=== PATIENT | female | born 1935 | race Caucasian/White ===

== ENCOUNTER 2019-07-30 13:14 | Emergency (ER) | payer MEDICARE, OTHER ==
[~2019-07-30] VITALS: Ht 160 cm; Wt 72.7 kg
[2019-07-30 13:22] VITALS: Ht 160 cm; Wt 72.7 kg
[2019-07-30 13:42] LABS: BASOPHILS 0.5 % (0-2); EOSINOPHILS 2.3 % (0-7); HEMATOCRIT 42.5 % (36.0-48.0); HEMOGLOBIN 13.6 g/dL (12-16); IMMATURE GRANULOCYTES 0.4 % (0-5); LYMPHOCYTES 25.5 % (15-50); MCH 28.5 pg (26.0-34.0); MCV 89.1 fL (80.0-100.0); MEAN PLATELET VOLUME 9.6 fL (7.4-10.4); NEUTROPHILS 63.3 % (40-80); PLATELET COUNT 193 10x3/uL (130-400); RBC 4.77 10x6/uL (4.00-5.40); RDW 13.9 % (11.5-14.5); WBC 7.4 10x3/uL (4.8-10.8)
[2019-07-30 13:51] LABS: CALC OSMOLALITY 287 mosm/kg (275-300); CALCIUM 9.3 mg/dL (8.5-10.1); CARBON DIOXIDE 27.9 mmol/L (21.0-32.0); CHLORIDE - SERUM 109 mmol/L (98-107); GLUCOSE 130 mg/dL (74-106); POTASSIUM - SERUM 4.1 mmol/L (3.5-5.1); SODIUM 143 mmol/L (136-145); UREA NITROGEN 14 mg/dL (7-18); eGFR NON AFRICAN AMERICAN 56 mL/min (90-120)
[2019-07-30 14:09] LABS: ALBUMIN 3.1 g/dL (3.4-5.0); ALKALINE PHOSPHATASE 70 U/L (30-120); ALT (SGPT) 13 U/L (10-68); BILIRUBIN - TOTAL 0.49 mg/dL (0.2-1.3); CKMB 0.6 U/L (0.0-3.6); CREATINE KINASE 48 UL (21-215); MAGNESIUM - SERUM 2.3 mg/dL (1.8-2.4); PROTEIN - SERUM 6.8 g/dL (6.4-8.2)
[2019-07-30 14:10] LABS: TROPONIN-I < 0.017 ng/mL (0.000-0.060)
[2019-07-30 14:38] LABS: INR 1.06 (0.85-1.17); PROTIME 13.1 SECONDS (11.6-15.0)
[2019-07-30 14:41] LABS: APTT 26.4 SECONDS (22.8-39.4)
[2019-07-30 15:00] VITALS: BP 190/90
== END 2019-08-03 07:29 | disposition other institution (70) ==
LOC: D.ER 13:14
PROVIDERS: Family Medicine
DX: I63.9 Cerebral infarction, unspecified (principal); R13.10 Dysphagia, unspecified; I16.0 Hypertensive urgency; I49.8 Other specified cardiac arrhythmias

== ENCOUNTER 2020-08-19 10:45 | Inpatient (IN) | payer MEDICARE, OTHER ==
[~2020-08-19] VITALS: Ht 160 cm; Wt 68.5 kg
[~2020-08-19 10:45] MED LIST: BAYER CHEWABLE81 MG PO; BETAPACE 80 MG80 MG PO; ELIQUIS5 MG PO; PRINZIDE 20/12.1 TAB PO
--- NOTE | 2020-08-19 10:48 | NUR ---
ARRIVED VIA EMS AFTER FALLING AND C/O PAIN IN RIGHT KNEE.
[2020-08-19 11:20] VITALS: BP 144/84
[2020-08-19 12:07] VITALS: BP 134/80
[2020-08-19 13:07] VITALS: BP 154/74
[2020-08-19 13:38] LABS: CALC OSMOLALITY 277 mosm/kg (275-300); CALCIUM 8.9 mg/dL (8.5-10.1); CHLORIDE - SERUM 103 mmol/L (98-107); CREATININE - SERUM 0.8 mg/dL (0.6-1.3); GLUCOSE 114 mg/dL (74-106); POTASSIUM - SERUM 3.6 mmol/L (3.5-5.1); SODIUM 139 mmol/L (136-145); UREA NITROGEN 10 mg/dL (7-18); eGFR NON AFRICAN AMERICAN 72 mL/min (90-120)
[2020-08-19 13:46] LABS: BASOPHILS 0.5 % (0-2); HEMATOCRIT 32.4 % (36.0-48.0); HEMOGLOBIN 10.1 g/dL (12-16); IMMATURE GRANULOCYTES 0.4 % (0-5); LYMPHOCYTE ABS# 1.15 10x3/uL (1.18-3.74); LYMPHOCYTES 11.3 % (15-50); MCH 28.1 pg (26.0-34.0); MCHC 31.2 g/dL (31.0-37.0); MEAN PLATELET VOLUME 10.6 fL (7.4-10.4); MONOCYTES 12.3 % (2-11); NEUTROPHIL ABS# 7.61 10x3/uL (1.56-6.13); NEUTROPHILS 74.5 % (40-80); PLATELET COUNT 216 10x3/uL (130-400); RDW 16.1 % (11.5-14.5); WBC 10.2 10x3/uL (4.8-10.8)
[2020-08-19 13:51] LABS: ALBUMIN 2.8 g/dL (3.4-5.0); ALKALINE PHOSPHATASE 83 U/L (30-120); ALT (SGPT) 14 U/L (10-68); BILIRUBIN - TOTAL 2.15 mg/dL (0.2-1.3); MAGNESIUM - SERUM 2.2 mg/dL (1.8-2.4); PRO BNP 6359 pg/mL (0-450); PROTEIN - SERUM 6.4 g/dL (6.4-8.2); TROPONIN-I < 0.017 ng/mL (0.000-0.060)
--- NOTE | 2020-08-19 14:00 | NUR ---
ASSUMED CARE OF PT. A/A/OX3. INCONT OF LARGE AMT URINE. CHANGED/PERICARE GIVEN. POSITIONED FOR COMFORT.
[2020-08-19 14:10] VITALS: BP 165/82
[2020-08-19 14:22] LABS: APTT 35.4 SECONDS (22.8-39.4); INR 2.01 (0.85-1.17); PROTIME 21.2 SECONDS (11.6-15.0)
--- NOTE | 2020-08-19 16:15 | NUR ---
NOTIFIED CONCRETE POURING SUPERVISOR OF CONSULT FOR DR SIFUENTES FOR ELEVATED BNP
[2020-08-19 16:19] VITALS: BP 124/98
[2020-08-19 16:46] LABS: SARS-CoV-2 ANTIGEN NEGATIVE- SARS-COV-2 (NEGATIVE)
--- NOTE | 2020-08-19 17:26 | NUR ---
REPORT TO MARÍA, NURSE
[2020-08-19 18:10] VITALS: Ht 160 cm; Wt 68.5 kg
[2020-08-19] MEDS ORDERED: TIROSINT25 MCG PO (18:52)
[2020-08-19] MEDS ORDERED: METOPROLOL TART25 MG PO (18:52)
[2020-08-19 19:51] LABS: CKMB 0.3 U/L (0.0-3.6); CREATINE KINASE 32 UL (21-215); TROPONIN-I < 0.017 ng/mL (0.000-0.060)
[2020-08-19 20:43] VITALS: BP 158/88
--- NOTE | 2020-08-19 22:55 | NUR ---
TELEMETRY CALLED AND REPORTED PT HAVING 4-5 RUN OF VTACH. HOME MEDS BETAPACE AND lopressor resumed per orders, these are given at this time. paged coil shaper to notify of runs of vtach 230 spoke to Therese Murdock APN, advised to notify Dr Villanueva
--- NOTE | 2020-08-19 23:08 | NUR ---
runs of vtach called to Dr Villanueva. He interogated pt pacemaker yesterdat feels this is likely afib not vtach. will see pt tomorrow. will continue to monitor
[2020-08-20 00:19] VITALS: BP 145/82
--- NOTE | 2020-08-20 01:20 | NUR ---
VO FOR BLAIR CATH D/T SEVERE PAIN WITH TURNIG FOR INCONTINENCE CARE. BLAIR CATH ATTEMPTED MULTIPLE TIMES X 3 NURSES UNSUCCESSFUL. PUREWIK CATH REPLACED. WILL CONTINUE TO MONITOR
[2020-08-20 01:27] LABS: BILIRUBIN NEGATIVE (NEGATIVE); KETONE NEGATIVE (NEGATIVE); NITRITE NEGATIVE (NEGATIVE); UROBILINOGEN NORMAL mg/dL (< 2)
[2020-08-20 02:14] LABS: CKMB 0.4 U/L (0.0-3.6); CREATINE KINASE 29 UL (21-215); TROPONIN-I < 0.017 ng/mL (0.000-0.060)
--- NOTE | 2020-08-20 05:38 | NUR ---
camilo cath placed via sterile technique by Lois PADRON . pt bed pad noted to be saturated with urine prior to camilo cath placment. Pt tolerated procedure well no s/sx of pain/discmofort with camilo cath. Pt reports continued pain to right knee with movement or touch
[2020-08-20 07:25] LABS: BASOPHILS 0.6 % (0-2); EOSINOPHILS 2.3 % (0-7); HEMATOCRIT 34.9 % (36.0-48.0); HEMOGLOBIN 10.8 g/dL (12-16); IMMATURE GRANULOCYTES 0.5 % (0-5); LYMPHOCYTES 16.9 % (15-50); MCH 27.8 pg (26.0-34.0); MCHC 30.9 g/dL (31.0-37.0); MCV 89.9 fL (80.0-100.0); MEAN PLATELET VOLUME 9.4 fL (7.4-10.4); MONOCYTES 13.9 % (2-11); NEUTROPHIL ABS# 5.46 10x3/uL (1.56-6.13); NEUTROPHILS 65.8 % (40-80); PLATELET COUNT 231 10x3/uL (130-400); RBC 3.88 10x6/uL (4.00-5.40); RDW 16.1 % (11.5-14.5); WBC 8.3 10x3/uL (4.8-10.8)
[2020-08-20 07:35] VITALS: BP 149/88
[2020-08-20 07:44] LABS: ALBUMIN 2.4 g/dL (3.4-5.0); ANION GAP 6.1 mmol/L (8-16); CALCIUM 8.4 mg/dL (8.5-10.1); CARBON DIOXIDE 33.2 mmol/L (21.0-32.0); CREATININE - SERUM 0.8 mg/dL (0.6-1.3); MAGNESIUM - SERUM 2.1 mg/dL (1.8-2.4); POTASSIUM - SERUM 3.3 mmol/L (3.5-5.1); PROTEIN - SERUM 5.1 g/dL (6.4-8.2)
[2020-08-20 07:51] LABS: CREATINE KINASE 30 UL (21-215); TROPONIN-I < 0.017 ng/mL (0.000-0.060)
[2020-08-20 08:05] LABS: CKMB 0.2 U/L (0.0-3.6)
--- NOTE | 2020-08-20 08:27 | NUR ---
AM MEDS GIVEN AT THIS TIME. ALSO GAVE 40MEQ OF K FOR LOW K OF 3.3. PT A/O X2, RESP EVEN AND NONLABORED ON 2L NC. LT CHEST PACEMAKER DRESSING CDI. PACED- 76 ON TELEMETRY. NO OUTPUT NOTED TO JOHNNIE AT THIS TIME. ALL NEEDS MET, CALL LIGHT IN REACH, WILL CONTINUE PLAN OF CARE.
--- NOTE | 2020-08-20 10:31 | NUR ---
INSTRUCTED PT ON HOW TO USE INCENTIVE SPIROMETER, PT WAS ONLY ABLE TO REACH 500 MINH. PLACED SCDS ON BILAT. PT DENIES ANY NEEDS AT THIS TIME. BED ALARM ON AND CALL LIGHT IN REACH.
[2020-08-20 14:08] VITALS: BP 135/82
[2020-08-20 17:20] VITALS: BP 153/96
--- NOTE | 2020-08-20 17:45 | NUR ---
NOTIFIED BY TRIAGE REGISTER NURSE THAT PT HAD PULLED HER IV OUT. CATHETER TIP INTACT. TRIAGE REGISTER NURSE CLEANED PT UP. NEW 22G IV STARTED TO RT HAND. PT TOLERATED WELL. PT DENIES ANY NEEDS AT THIS TIME. CALL LIGHT IN REACH, BED ALARM ON.
[2020-08-20 22:19] VITALS: BP 146/98
[2020-08-21 00:30] VITALS: BP 110/68
[2020-08-21 04:30] VITALS: BP 108/57
--- NOTE | 2020-08-21 06:43 | NUR ---
PT HAS RESTED THROUGH THE NIGHT. BLAIR WAS PATENT UP UNTIL 0545 WHEN NURSE ENTERED ROOM AND PT WAS HOLDING BLAIR IN HER HAND WITH BULB STILL INFLATED. PT PLEASANTLY CONFUSED. PICKING AT HER CLOTHES, PICKING AT HER COVERS. LEAVING BLAIR OUT AT THIS TIME. PACED ON TELEMETRY. PACEMAKER SITE TO LEFT CHEST WALL IS C/D/I. SCDS IN PLACE. CALL LIGHT IN REACH. REPORT TO ONCOMING NURSE.
--- NOTE | 2020-08-21 07:47 | NUR ---
NOTIFIED BY ROLLER VARNISHER, THAT PT HAD A 10 BEAT RUN OF VTACH. WILL NOTIFY STOCK SHIPPER.
--- NOTE | 2020-08-21 07:48 | NUR ---
NOTIFIED BY DATA MANAGEMENT MANAGER THAT PT HAD 10 BEAT RUN OF VTACH. CHECKED ON PT AND SHE IS ASYMPTOMATIC, RESTING COMFORTABY IN BED, DENIES ANY NEEDS AT THIS TIME. WILL NOTIFY DOCTOR.
[2020-08-21 08:06] LABS: ALBUMIN 2.6 g/dL (3.4-5.0); ANION GAP 5.8 mmol/L (8-16); BASOPHILS 0.2 % (0-2); BILIRUBIN - TOTAL 1.16 mg/dL (0.2-1.3); CALCIUM 8.8 mg/dL (8.5-10.1); CREATININE - SERUM 0.9 mg/dL (0.6-1.3); EOSINOPHILS 2.5 % (0-7); HEMATOCRIT 37.6 % (36.0-48.0); HEMOGLOBIN 11.5 g/dL (12-16); IMMATURE GRANULOCYTES 0.7 % (0-5); LYMPHOCYTE ABS# 1.51 10x3/uL (1.18-3.74); LYMPHOCYTES 15.6 % (15-50); MCH 27.6 pg (26.0-34.0); MCHC 30.6 g/dL (31.0-37.0); MCV 90.2 fL (80.0-100.0); MEAN PLATELET VOLUME 9.5 fL (7.4-10.4); MONOCYTES 11.6 % (2-11); NEUTROPHIL ABS# 6.73 10x3/uL (1.56-6.13); NEUTROPHILS 69.4 % (40-80); POTASSIUM - SERUM 3.8 mmol/L (3.5-5.1); RBC 4.17 10x6/uL (4.00-5.40); RDW 16.1 % (11.5-14.5); WBC 9.7 10x3/uL (4.8-10.8)
[2020-08-21 08:08] LABS: PROTEIN - SERUM 6.5 g/dL (6.4-8.2)
[2020-08-21 08:10] LABS: PLATELET COUNT 307 10x3/uL (130-400)
--- NOTE | 2020-08-21 11:30 | NUR ---
CLEANED PT UP FROM INCONT EPISODE, AND REPOSITIONED HER IN BED.
[2020-08-21 12:49] VITALS: BP 137/58
--- NOTE | 2020-08-21 17:19 | NUR ---
UPDATED PT'S ABOUT PT'S CONDITION AND PLAN OF CARE.
[2020-08-21 20:00] VITALS: BP 145/86
[2020-08-22] VITALS: BP 138/89
[2020-08-22 04:00] VITALS: BP 153/98
[2020-08-22 04:53] LABS: BASOPHILS 0.4 % (0-2); HEMATOCRIT 37.9 % (36.0-48.0); HEMOGLOBIN 11.5 g/dL (12-16); IMMATURE GRANULOCYTES 0.6 % (0-5); LYMPHOCYTE ABS# 1.02 10x3/uL (1.18-3.74); LYMPHOCYTES 12.7 % (15-50); MCH 27.3 pg (26.0-34.0); MCHC 30.3 g/dL (31.0-37.0); MCV 89.8 fL (80.0-100.0); MEAN PLATELET VOLUME 9.7 fL (7.4-10.4); MONOCYTES 10.3 % (2-11); NEUTROPHIL ABS# 5.69 10x3/uL (1.56-6.13); PLATELET COUNT 254 10x3/uL (130-400); RBC 4.22 10x6/uL (4.00-5.40)
[2020-08-22 05:16] LABS: ALBUMIN 2.3 g/dL (3.4-5.0); BILIRUBIN - TOTAL 0.86 mg/dL (0.2-1.3); CALCIUM 8.7 mg/dL (8.5-10.1); CARBON DIOXIDE 32.5 mmol/L (21.0-32.0); CREATININE - SERUM 0.8 mg/dL (0.6-1.3); POTASSIUM - SERUM 3.5 mmol/L (3.5-5.1)
[2020-08-22 08:43] VITALS: BP 195/113
--- NOTE | 2020-08-22 08:45 | NUR ---
NURSE IN ROOM WITH PATIENT DOING PO MEDS AND SETTING UP BREAKFAST TRAY. PATIENT IS CONFUSED THIS MORNING AND NURSE TRIES TO REORIENT HER. NURSE SITS PATIENT UP AND TRIES TO GET HER TO EAT SOME BREAKFAST. PATIENT TELLS NURSE THAT SHE CHOKED ON SOMETHING THIS AM. NURSE WATCHES HER CAREFULLY. PLAN OF CARE REVIEWED AND ASSESSMENT HAS BEEN COMPLETED. CALL LIGHT IN REACH. NAD NOTED.
--- NOTE | 2020-08-22 08:59 | NUR ---
NURSE CALLS RIZWANA ABOUT PATIENT'S BP BEING 195/113. WAITING FOR RETURNED PHONE CALL
--- NOTE | 2020-08-22 09:30 | NUR ---
NURSE TALKS TO DAVID FROM INFECTION CONTROL. NURSE REPORTS THAT PATIENT IS NEGATIVE. INFECTION CONTROL TAKES PATIENT OFF OF ISOLATION PRECAUTIONS.
--- NOTE | 2020-08-22 10:22 | NUR ---
AFTER GIVING IV HYDRALZINE NURSE RECHECKS BP AND IT IS NOW 128/63. PATIENT SHOWS NO S/S OF DISTRESS. CALL LIGHT IN REACH
[2020-08-22 12:20] VITALS: BP 126/62
--- NOTE | 2020-08-22 14:38 | MORECARE ---
CASE MANAGEMENT DISCHARGE SUMMARY PATIENT: RHONDA NOGUEIRA ANN UNIT: [id number] ADM DATE: 08/20/20 AGE: 84 : 33 SEX: F ROOM/BED: D.2137 AUTHOR: NICHOLE LIU PHYSICIAN: REFERRING PHYSICIAN: MILLY TORRES MD DATE OF SERVICE: 08/22/20 Discharge Plan Patient Name: RHONDA NOGUEIRA [facility] [facility] 1935 Planned Disposition: Psych facility Anticipated Discharge Date: Discharge Date: Expected LOS: Initial Reviewer: [email or web address] Initial Review Date: 08/22/2020 Generated: 08/22/20 3:37 pm DCPIA - Discharge Planning Initial Assessment Updated by [email or web address]: Georgiana Malone on 08/22/20 2:35 pm * Is the patient Alert and Oriented? No * How many steps to enter\exit or inside your home? 2/0 * PCP Dr. Kennedy * Pharmacy [facility] on [address] * Preadmission Environment Home with Family * ADLs Independent * Equipment None * List name and contact numbers for known caregivers / representatives who currently or will assist patient after discharge: Franki Nogueira - spouse - [phone] * Verbal permission to speak to the caregivers and representatives has been obtained from the patient. N/A * Community resources currently utilized None * Additional services required to return to the preadmission environment? Yes * Can the patient safely return to the preadmission environment? No * Has this patient been hospitalized within the prior 30 days at any hospital? No Patient Name: RHONDA NOGUEIRA Page [phone] at 1438 All edits/amendments must be made on the electronic document DICTATION DATE: 08/22/20 1437 CLOTHES IRONER: QUEENIE 08/22/20 1437 RPT#: [id number] DC DATE: STATUS: ADM IN [facility] [address] [place] [address] END OF REPORT
--- NOTE | 2020-08-22 14:55 | MORECARE ---
CASE MANAGEMENT DISCHARGE SUMMARY PATIENT: RHONDA NOGUEIRA ANN UNIT: [id number] ADM DATE: 08/20/20 AGE: 84 : 33 SEX: F ROOM/BED: D.7856 AUTHOR: NICHOLE LIU PHYSICIAN: REFERRING PHYSICIAN: MILLY TORRES MD DATE OF SERVICE: 08/22/20 Discharge Plan Patient Name: RHONDA NOGUEIRA [facility] [facility] 1935 Planned Disposition: Psych facility Anticipated Discharge Date: Discharge Date: Expected LOS: Initial Reviewer: [email or web address] Initial Review Date: 08/22/2020 Generated: 08/22/20 3:54 pm Comments DCP- Discharge Planning Updated by [email or web address]: Georgiana Malone on 08/22/20 12:[address] Patient Name: RHONDA NOGUEIRA Admission Status: ER Accout number: [id number] Admission Date: 08-20-2020 : 1935 Admission Diagnosis: Attending: MILLY MCKINLEY Current LOS: 2 Anticipated DC Date: Planned Disposition: Psych facility Primary Insurance: MEDICARE A & B Discharge Planning Comments: CM met with patient and she is not able to speak with me concerning discharge instructions. She does not even acknowledge that I am calling her name. I called the patient's spouse on the phone to discuss discharge planning/needs. states she was here a couple of weeks ago and had a pacemaker placed. States she is independent with her care. States she does not have a walker, but "I can get one if she needs one." I discussed that the psychiatrist had states she would be a candidate for jail admission if he agreed. He states "I need to speak with her doctor and see what they recommend." He started saying how weak she was from her pacemaker and I asked if she needed rehab. He states "I just need to speak with the doctor before I make a decision." I spoke with Alicia Paulson APN and gave her the 's number to call. CM will continue to follow and assist with discharge planning/needs. Business Systems Architect: Georgiana Malone DCPIA - Discharge Planning Initial Assessment Updated by [email or web address]: Georgiana Malone on 08/22/20 2:35 pm * Is the patient Alert and Oriented? No * How many steps to enter\\exit or inside your home? 2/0 * PCP Dr. Kennedy * [facility] on [address] * Preadmission Environment Home with Family * ADLs Independent * Equipment None * List name and contact numbers for known caregivers / representatives who currently or will assist patient after discharge: Franki Nogueira - spouse - [phone] * Verbal permission to speak to the caregivers and representatives has been obtained from the patient. N/A * Community resources currently utilized None * Additional services required to return to the preadmission environment? Yes * Can the patient safely return to the preadmission environment? No * Has this patient been hospitalized within the prior 30 days at any hospital? No Last DP export: 08/22/20 12:38 p Patient Name: RHONDA NOGUEIRA Page [phone] at 1456 All edits/amendments must be made on the electronic document DICTATION DATE: 08/22/201454 FAMILY NURSE: QUEENIE 08/22/20 145 RPT#: [id number] DC DATE: STATUS: ADM IN [facility] [address] [place] [address] END OF REPORT
--- NOTE | 2020-08-22 16:06 | NUR ---
NURSE GIVES PATIENT TYLENOL FOR 101 TEMP. NURSE REPOSITIONS PATIENT IN BED, PROPS FEET
[2020-08-22 16:57] VITALS: BP 159/87
[2020-08-22 20:00] VITALS: BP 140/83
--- NOTE | 2020-08-22 20:15 | NUR ---
REPORT RECEIVED, WILL CONT POC. A& PLEASENTLY CONFUSED. RESITED IV TO R SHOULDER. NO S/S OF DISTRESS OBSERVED. RR EVEN AND UNLABORED ON RA. BED LOCKED AND LOWERED, CL IN REACH. ASSESSMENT COMPLETED AT THIS TIME. WILL CONT TO MONITOR.
[2020-08-23] VITALS: BP 127/87
[2020-08-23 04:00] VITALS: BP 180/80
[2020-08-23 06:53] LABS: BASOPHILS 0.5 % (0-2); EOSINOPHILS 4.8 % (0-7); HEMATOCRIT 38.3 % (36.0-48.0); HEMOGLOBIN 11.5 g/dL (12-16); IMMATURE GRANULOCYTES 0.9 % (0-5); LYMPHOCYTE ABS# 1.07 10x3/uL (1.18-3.74); LYMPHOCYTES 13.8 % (15-50); MCH 27.1 pg (26.0-34.0); MCV 90.1 fL (80.0-100.0); MEAN PLATELET VOLUME 9.4 fL (7.4-10.4); MONOCYTES 9.5 % (2-11); NEUTROPHIL ABS# 5.49 10x3/uL (1.56-6.13); NEUTROPHILS 70.5 % (40-80); PLATELET COUNT 276 10x3/uL (130-400); RBC 4.25 10x6/uL (4.00-5.40); RDW 16.4 % (11.5-14.5); WBC 7.8 10x3/uL (4.8-10.8)
[2020-08-23 07:09] LABS: ALBUMIN 2.4 g/dL (3.4-5.0); BILIRUBIN - TOTAL 0.64 mg/dL (0.2-1.3); CALCIUM 8.7 mg/dL (8.5-10.1); CARBON DIOXIDE 32.7 mmol/L (21.0-32.0); CREATININE - SERUM 0.8 mg/dL (0.6-1.3); MAGNESIUM - SERUM 2.2 mg/dL (1.8-2.4); PROTEIN - SERUM 5.3 g/dL (6.4-8.2)
[2020-08-23 07:10] LABS: ANION GAP 6.7 mmol/L (8-16); POTASSIUM - SERUM 4.4 mmol/L (3.5-5.1)
--- NOTE | 2020-08-23 08:23 | NUR ---
PO MEDS GIVEN THIS AM, PATIENT IS VERY CONFUSED AND UNABLE TO ORIENT. PATIENT IS AWAKE AND ALERT. PLAN OF CARE REVIEWED AND ASSESSMENT HAS BEEN COMPLETED. CALL LIGHT IN REACH
[2020-08-23 09:14] VITALS: BP 157/102
--- NOTE | 2020-08-23 09:30 | NUR ---
NURSE TALKS WITH BREANA ABOUT PT'S PACEMAKER, AND THE BRUISING AROUND AREA AND DOWN THE ARM. STATES SHE WILLL COME SEE HER AFTER CLINIC
--- NOTE | 2020-08-23 11:41 | NUR ---
NURSE TITRATES PATIENT AMIODARONE DRIP FROM 1 MG TO 0.5 MG AT THIS TIME. PATIENT IS ALERT. NAD NOTED.
--- NOTE | 2020-08-23 15:03 | NUR ---
NURSE TALKED TO DONALD HERRING AT THIS TIME , SHE LETS NURSE KNOW TO LEAVE AMIODARONE DRIP UNTIL CARDIO CHANGES TO PO
[2020-08-23 16:00] VITALS: BP 137/107
--- NOTE | 2020-08-23 17:05 | NUR ---
PATIENT'S BP IS 160/110. TO GIVES 10 MG IV HYDRALAZINE PER PRN ORDER. TO CALL CARDIOLOGY
--- NOTE | 2020-08-23 17:59 | NUR ---
BP IS NOW 138/88 AFTER HYDRALAZINE.
[2020-08-23 20:00] VITALS: BP 146/74
--- NOTE | 2020-08-23 20:40 | NUR ---
REPORT RECEIVED, WILL CONT POC. PT A&CONFUSED. NO S/S OF DISTRESS OBSERVED. RR EVEN AND UNLABORED ON RA. BED LOCKED AND LOWERED, CL IN REACH. ASSESSMENT COMPLETED AT THIS TIME. WILL CONT TO MONITOR.
[2020-08-24] VITALS: BP 119/84
--- NOTE | 2020-08-24 00:05 | NUR ---
PT REMOVED IV. RESITED TO L HAND.
[2020-08-24 04:00] VITALS: BP 111/65
[2020-08-24 06:32] LABS: ALKALINE PHOSPHATASE 68 U/L (30-120); ALT (SGPT) 11 U/L (10-68); BILIRUBIN - TOTAL 0.53 mg/dL (0.2-1.3); CALC OSMOLALITY 283 mosm/kg (275-300); CALCIUM 8.5 mg/dL (8.5-10.1); CARBON DIOXIDE 32.9 mmol/L (21.0-32.0); CHLORIDE - SERUM 106 mmol/L (98-107); CREATININE - SERUM 0.7 mg/dL (0.6-1.3); GLUCOSE 158 mg/dL (74-106); MAGNESIUM - SERUM 2.1 mg/dL (1.8-2.4); POTASSIUM - SERUM 3.7 mmol/L (3.5-5.1); PROTEIN - SERUM 5.3 g/dL (6.4-8.2); SODIUM 141 mmol/L (136-145); UREA NITROGEN 13 mg/dL (7-18); eGFR NON AFRICAN AMERICAN 84 mL/min (90-120)
[2020-08-24 07:33] LABS: BASOPHILS 0.4 % (0-2); EOSINOPHILS 5.7 % (0-7); HEMATOCRIT 34.8 % (36.0-48.0); HEMOGLOBIN 10.6 g/dL (12-16); IMMATURE GRANULOCYTES 0.8 % (0-5); LYMPHOCYTE ABS# 1.47 10x3/uL (1.18-3.74); LYMPHOCYTES 17.2 % (15-50); MCH 27.5 pg (26.0-34.0); MCHC 30.5 g/dL (31.0-37.0); MCV 90.4 fL (80.0-100.0); MEAN PLATELET VOLUME 9.3 fL (7.4-10.4); MONOCYTES 10.4 % (2-11); NEUTROPHIL ABS# 5.59 10x3/uL (1.56-6.13); NEUTROPHILS 65.5 % (40-80); PLATELET COUNT 277 10x3/uL (130-400); RBC 3.85 10x6/uL (4.00-5.40); RDW 16.4 % (11.5-14.5); WBC 8.5 10x3/uL (4.8-10.8)
--- NOTE | 2020-08-24 08:00 | NUR ---
NURSE GIVES PATIENT HER PO MEDS THIS AM AND SETS PATIENT'S BREAKFAST TRAYS UP. PLAN OF CARE REVIEWED AND ASSESSMENT HAS BEEN COMPLETED. NAD NOTED. CALL LIGHT IN REACH
[2020-08-24 08:28] VITALS: BP 152/88
[2020-08-24 12:31] VITALS: BP 150/82
[2020-08-24 16:01] VITALS: BP 128/86
--- NOTE | 2020-08-24 18:23 | NUR ---
PATIENT IS PLEASANT, EATING DINNER. DENIES NEEDS.CALL LIGHT IN REACH
--- NOTE | 2020-08-24 20:35 | NUR ---
REPORT RECEIVED, WILL CONT POC. PT UP IN BED, A&CONFUSED. NO S/S OF DISTRESS OBSERVED. RR EVEN AND UNLABORED ON 2L NC. BED LOCKED AND LOWERED, CL IN REACH. ASSESSMENT COMPLETED AT THIS TIME. WILL CONT TO MONITOR.
[2020-08-24 23:26] VITALS: BP 144/105
--- NOTE | 2020-08-25 01:18 | NUR ---
LATE ENTRY 08/24/20 CM spoke with patient's spouse he stated and he agrees to letting patient go to Group Home at [facility]. CM explained that after she may need some rehab. He agrees CM called half-way and they will be able to accept her as soon as she is medically stable. CM spoke with Alicia WALDRON and she stated that patient is still on an amino drip and that will need to be off before she can discharge. CM will continue to follow and assist as needed with discharge planning / needs.
[2020-08-25 04:45] VITALS: BP 118/80
[2020-08-25 05:24] LABS: BASOPHILS 0.4 % (0-2); EOSINOPHILS 6.3 % (0-7); HEMATOCRIT 37.8 % (36.0-48.0); HEMOGLOBIN 11.4 g/dL (12-16); LYMPHOCYTE ABS# 1.39 10x3/uL (1.18-3.74); LYMPHOCYTES 17.2 % (15-50); MCH 27.3 pg (26.0-34.0); MCHC 30.2 g/dL (31.0-37.0); MCV 90.6 fL (80.0-100.0); MEAN PLATELET VOLUME 9.1 fL (7.4-10.4); MONOCYTES 8.4 % (2-11); NEUTROPHIL ABS# 5.38 10x3/uL (1.56-6.13); NEUTROPHILS 66.7 % (40-80); PLATELET COUNT 287 10x3/uL (130-400); RBC 4.17 10x6/uL (4.00-5.40); RDW 16.3 % (11.5-14.5); WBC 8.1 10x3/uL (4.8-10.8)
[2020-08-25 05:56] LABS: ALBUMIN 2.2 g/dL (3.4-5.0); ANION GAP 8.8 mmol/L (8-16); BILIRUBIN - TOTAL 0.5 mg/dL (0.2-1.3); CALCIUM 8.7 mg/dL (8.5-10.1); CREATININE - SERUM 0.8 mg/dL (0.6-1.3); POTASSIUM - SERUM 3.8 mmol/L (3.5-5.1); PROTEIN - SERUM 5.8 g/dL (6.4-8.2)
--- NOTE | 2020-08-25 07:18 | NUR ---
PTS IV INFILTRATED. IV RESITED TO R FOREARM.
[2020-08-25 11:00] VITALS: BP 107/57
--- NOTE | 2020-08-25 12:01 | MORECARE ---
CASE MANAGEMENT DISCHARGE SUMMARY PATIENT: RHONDA NOGUEIRA UNIT: [id number] ADM DATE: 08/20/20 AGE: 84 : 33 SEX: F ROOM/BED: D.3205 AUTHOR: ALEXA,DOC PHYSICIAN: REFERRING PHYSICIAN: MILLY TORRES MD DATE OF SERVICE: 08/25/20 Case Management Discharge Planning Summary COMMENTS ENTERED DATE: 08/25/20 1:05 CT COMMENT TYPE: Discharge Planning REVIEWER: Layla Rawls CM spoke with patient's spouse he stated and he agrees to letting patient go to [facility] at [facility]. CM explained that after she may need some rehab. He agrees CM called [facility] and they will be able to accept her as soon as she is medically stable. CM spoke with Alicia WALDRON and she stated that patient is still on an amino drip and that will need to be off before she can discharge. CM will continue to follow and assist as needed with discharge planning / needs. DCP REVIEW SUMMARY ANTICIPATED D/C DATE: EXPECTED LOS : CASE STATUS: DCP Initiated INITIAL REVIEW: 08/23/2020 INITIAL REVIEWER: Layla Rawls FINAL DISCHARGE DISPOSITION: : FINAL REVIEWER: FINAL REVIEW DATE: DCP Focus Questions & Answers - Added on: QUESTION: ANSWER : PATIENT: RHONDA NOGUEIRA ENCOUNTER: [id number] MEDICAL RECORD#: [id number] ADMISSION DATE: 08/20/2020 DISCHARGE DATE: ATTENDING MD: MILLY OLIVEIRA : AGE: 84 MARITAL STATUS: M DC PLAN ID: [id number] FACILITY: [facility] PRINTED ON: 08/25/20 12:01 CT All edits/amendments must be made on the electronic document DICTATION DATE: 08/25/20 120 STUD BEEF CATTLE FARMER: DM 08/25/20 120 RPT#: [id number] DC DATE: STATUS: ADM IN [facility] [address] [place] [address] END OF REPORT
[2020-08-25] MEDS ORDERED: OMNICEF300 MG PO (12:29)
[2020-08-25] MEDS ORDERED: MUCINEX600 MG PO (12:30)
[2020-08-25] MEDS ORDERED: AMIODARONE HCL200 MG PO (12:30)
[2020-08-25] MEDS ORDERED: PROTONIX40 MG PO (12:30)
[2020-08-25] MEDS ORDERED: ZYPREXA2.5 MG PO (12:30)
--- NOTE | 2020-08-25 13:52 | MORECARE ---
CASE MANAGEMENT DISCHARGE SUMMARY PATIENT: RHONDA NOGUEIRA UNIT: [id number] ADM DATE: 08/20/20 AGE: 84 : 33 SEX: F ROOM/BED: D.2137 AUTHOR: ALEXA,DOC PHYSICIAN: REFERRING PHYSICIAN: MILLY TORRES MD DATE OF SERVICE: 08/25/20 Case Management Discharge Planning Summary COMMENTS ENTERED DATE: 08/25/20 13:49 CT COMMENT TYPE: Discharge Planning REVIEWER: Georgiana Malone CM met with patient in room. She is more alert today. States her was just here and is aware she is transferring downstairs. I spoke with daughter when she called and she is also aware of discharge to intermediate today. IMM explained, given and copy placed in chart. To Assisted today. ENTERED DATE: 08/25/20 1:05 CT COMMENT TYPE: Discharge Planning REVIEWER: Layla Rawls CM spoke with patient's spouse he stated and he agrees to letting patient go to Assisted at [facility]. CM explained that after she may need some rehab. He agrees CM called intermediate and they will be able to accept her as soon as she is medically stable. CM spoke with Alicia WALDRON and she stated that patient is still on an amino drip and that will need to be off before she can discharge. CM will continue to follow and assist as needed with discharge planning / needs. DCP REVIEW SUMMARY ANTICIPATED D/C DATE: EXPECTED LOS : CASE STATUS: DCP Initiated INITIAL REVIEW: 08/23/2020 INITIAL REVIEWER: Layla Rawls FINAL DISCHARGE DISPOSITION: : FINAL REVIEWER: FINAL REVIEW DATE: DCP Focus Questions & Answers - Added on: QUESTION: ANSWER : PATIENT: RHONDA NOGUEIRA ENCOUNTER: [id number] MEDICAL RECORD#: [id number] ADMISSION DATE: 08/20/2020 DISCHARGE DATE: ATTENDING MD: MILLY OLIVEIRA : AGE: 84 MARITAL STATUS: M DC PLAN ID: [id number] FACILITY: [facility] PRINTED ON: 08/25/20 13:52 CT All edits/amendments must be made on the electronic document DICTATION DATE: 08/25/201351 PARKING LOT CHAUFFEUR: QUEENIE 08/25/20 135 RPT#: [id number] DC DATE: STATUS: ADM IN [facility] [address] [place] [address] END OF REPORT
--- NOTE | 2020-08-25 15:02 | NUR ---
0700--RESTING QUIETLY IN BED. NO DISTRESS NOTED. 1000--WOKE PT UP FOR MORNING MEDS. PLEASANTLY CONFUSED. AMIODARONE STOPPED AFTER TAKING PO DOSE.
--- NOTE | 2020-08-25 15:44 | NUR ---
REPORT CALLED TO [facility]. ASKED TO HAVE PT BROUGHT DOWN AROUND 4 PM. PT REMAINS PLEASANTLY CONFUSED. DENIES ANY NEEDS.
--- NOTE | 2020-08-25 17:36 | MORECARE ---
CASE MANAGEMENT DISCHARGE SUMMARY PATIENT: RHONDA NOGUEIRA UNIT: [id number] ADM DATE: 08/20/20 AGE: 84 : 33 SEX: F ROOM/BED: D.2137 AUTHOR: ALEXA,DOC PHYSICIAN: REFERRING PHYSICIAN: MILLY TORRES MD DATE OF SERVICE: 08/25/20 Case Management Discharge Planning Summary COMMENTS ENTERED DATE: 08/25/20 13:49 CT COMMENT TYPE: Discharge Planning REVIEWER: Georgiana Malone CM met with patient in room. She is more alert today. States her was just here and is aware she is transferring downstairs. I spoke with daughter when she called and she is also aware of discharge to care home today. IMM explained, given and copy placed in chart. To [facility] today. ENTERED DATE: 08/25/20 1:05 CT COMMENT TYPE: Discharge Planning REVIEWER: Layla Rawls CM spoke with patient's spouse he stated and he agrees to letting patient go to [facility]. CM explained that after she may need some rehab. He agrees CM called care home and they will be able to accept her as soon as she is medically stable. CM spoke with Alicia WALDRON and she stated that patient is still on an amino drip and that will need to be off before she can discharge. CM will continue to follow and assist as needed with discharge planning / needs. DCP REVIEW SUMMARY ANTICIPATED D/C DATE: EXPECTED LOS : CASE STATUS: DCP Initiated INITIAL REVIEW: 08/23/2020 INITIAL REVIEWER: Layla Rawls FINAL DISCHARGE DISPOSITION: : FINAL REVIEWER: FINAL REVIEW DATE: DCP Focus Questions & Answers - Added on: QUESTION: ANSWER : PATIENT: RHONDA NOGUEIRA ENCOUNTER: [id number] MEDICAL RECORD#: [id number] ADMISSION DATE: 08/20/2020 DISCHARGE DATE: 08/25/2020 ATTENDING MD: MILLY OLIVEIRA : AGE: 84 MARITAL STATUS: M DC PLAN ID: [id number] FACILITY: [facility] PRINTED ON: 08/25/20 17:36 CT All edits/amendments must be made on the electronic document DICTATION DATE: 08/25/201735 WASTE HAND: QUENEIE 08/25/201735 RPT#: [id number] DC DATE:08/25/20 STATUS: DIS IN [facility] [address] [facility] [place] [id number] END OF REPORT
--- NOTE | 2020-08-26 08:29 | MORECARE ---
CASE MANAGEMENT DISCHARGE SUMMARY PATIENT: RHONDA NOGUEIRA UNIT: [id number] ADM DATE: 08/20/20 AGE: 84 : 33 SEX: F ROOM/BED: D.2137 AUTHOR: ALEXA,DOC PHYSICIAN: REFERRING PHYSICIAN: MILLY TORRES MD DATE OF SERVICE: 08/26/20 Case Management Discharge Planning Summary COMMENTS ENTERED DATE: 08/25/20 13:49 CT COMMENT TYPE: Discharge Planning REVIEWER: Georgiana Malone CM met with patient in room. She is more alert today. States her was just here and is aware she is transferring downstairs. I spoke with daughter when she called and she is also aware of discharge to longterm today. IMM explained, given and copy placed in chart. To Retirement today. ENTERED DATE: 08/25/20 1:05 CT COMMENT TYPE: Discharge Planning REVIEWER: Layla Rawls CM spoke with patient's spouse he stated and he agrees to letting patient go to Retirement at [facility]. CM explained that after she may need some rehab. He agrees CM called longterm and they will be able to accept her as soon as she is medically stable. CM spoke with Alicia WALDRON and she stated that patient is still on an amino drip and that will need to be off before she can discharge. CM will continue to follow and assist as needed with discharge planning / needs. DCP REVIEW SUMMARY ANTICIPATED D/C DATE: EXPECTED LOS : CASE STATUS: DCP Initiated INITIAL REVIEW: 08/23/2020 INITIAL REVIEWER: Layla Rawls FINAL DISCHARGE DISPOSITION: : FINAL REVIEWER: FINAL REVIEW DATE: DCP Focus Questions & Answers - Added on: QUESTION: ANSWER : PATIENT: RHONDA NOGUEIRA ENCOUNTER: [id number] MEDICAL RECORD#: [id number] ADMISSION DATE: 08/20/2020 DISCHARGE DATE: 08/25/2020 ATTENDING MD: MILLY OLIVEIRA : AGE: 84 MARITAL STATUS: M DC PLAN ID: [id number] FACILITY: [facility] PRINTED ON: 08/26/20 8:29 CT All edits/amendments must be made on the electronic document DICTATION DATE: 08/26/20828 MASONRY INSTRUCTOR: QUEENIE 08/26/20828 RPT#: [id number] DC DATE:08/25/20 STATUS: DIS IN [facility] [address] [facility] [facility] [place] [id number] END OF REPORT
== END 2020-08-25 17:30 | DRG 811 ==
LOC: D.ER 10:45 → D.M2 16:10 → D.EDHOLD 16:10 → OBSVTIME 16:10 → D.M2 17:00
PROVIDERS: Emergency Medicine; ADMIT Family Medicine Adult Medicine; ATTEND Family Medicine Adult Medicine
DX: D64.9 Anemia, unspecified (principal); J18.9 Pneumonia, unspecified organism; I50.21 Acute systolic (congestive) heart failure; L76.32 Postprocedural hematoma of skin and subcutaneous tissue following other procedure; M17.11 Unilateral primary osteoarthritis, right knee; I11.0 Hypertensive heart disease with heart failure; W01.0XXA Fall on same level from slipping, tripping and stumbling without subsequent striking against object, initial encounter; E80.6 Other disorders of bilirubin metabolism; I48.91 Unspecified atrial fibrillation; I16.0 Hypertensive urgency; Y83.9 Surgical procedure, unspecified as the cause of abnormal reaction of the patient, or of later complication, without mention of misadventure at the time of the procedure; R41.0 Disorientation, unspecified; Z95.0 Presence of cardiac pacemaker

== ENCOUNTER 2020-08-25 15:19 | Inpatient (IN) | payer MEDICARE, OTHER ==
[~2020-08-25] VITALS: Ht 160 cm; Wt 71.0 kg
[~2020-08-25 15:19] MED LIST changes: +AMIODARONE HCL200 MG PO; +METOPROLOL TART25 MG PO; +MUCINEX600 MG PO; +OMNICEF300 MG PO; +PROTONIX40 MG PO; +TIROSINT25 MCG PO; +ZYPREXA2.5 MG PO
--- NOTE | 2020-08-25 18:33 | NUR ---
Patient rec'd to unit. Orientation completed to room, etc. She is A/O times 1 to person. She has been smily and happy and has been converseing with all patients and staff. Assessment, HX, and orders placed.
[2020-08-25 20:00] VITALS: BP 118/64
[2020-08-25 22:21] VITALS: BP 118/64
--- NOTE | 2020-08-25 23:24 | NUR ---
PT IS ALERT AND ORIENTED TO SELF ONLY. SHE HAS POOR INSIGHT INTO HER SITUATION. SHE IS RECEIVED IN A WHEELCHAIR OUTSIDE THE NURSES STATION. SHE IS OBSERVED SOCIALIZING WITH PEERS. COOPERATIVE WITH STAFF. EASY TO REDIRECT. MONITOR FOR SAFETY.
[2020-08-26 05:48] LABS: BASOPHILS 0.7 % (0-2); EOSINOPHILS 5.4 % (0-7); HEMATOCRIT 37.6 % (36.0-48.0); HEMOGLOBIN 11.3 g/dL (12-16); IMMATURE GRANULOCYTES 0.8 % (0-5); LYMPHOCYTE ABS# 1.52 10x3/uL (1.18-3.74); LYMPHOCYTES 17.3 % (15-50); MCH 27.2 pg (26.0-34.0); MCHC 30.1 g/dL (31.0-37.0); MCV 90.6 fL (80.0-100.0); MEAN PLATELET VOLUME 8.9 fL (7.4-10.4); MONOCYTES 7.9 % (2-11); NEUTROPHIL ABS# 5.96 10x3/uL (1.56-6.13); NEUTROPHILS 67.9 % (40-80); PLATELET COUNT 267 10x3/uL (130-400); RBC 4.15 10x6/uL (4.00-5.40); RDW 16.1 % (11.5-14.5); WBC 8.8 10x3/uL (4.8-10.8)
[2020-08-26 06:45] LABS: ALBUMIN 2.4 g/dL (3.4-5.0); ANION GAP 6.3 mmol/L (8-16); BILIRUBIN - TOTAL 0.65 mg/dL (0.2-1.3); CALCIUM 9.1 mg/dL (8.5-10.1); CARBON DIOXIDE 31.5 mmol/L (21.0-32.0); CHOL - HDL RATIO 5.5 ratio (2.3-4.1); CREATININE - SERUM 0.8 mg/dL (0.6-1.3); LDL-HDL RATIO 3.8 ratio (1.5-3.5); POTASSIUM - SERUM 3.8 mmol/L (3.5-5.1); PROTEIN - SERUM 5.9 g/dL (6.4-8.2); THYROID STIMULATING HORMONE 5.38 uIU/mL (0.36-3.74)
[2020-08-26 09:29] VITALS: BP 161/75
--- NOTE | 2020-08-26 12:44 | NUR ---
SPOUSE PHONED AND SAID THAT HE WAS HERE TO SEE HIS . EXPLAINED TO HIM THAT VISITATION WAS ON SATURDAY, SATURDAY, SATURDAY, AND SATURDAY. BEFORE THIS NURSE COULD TELL HIM THE APPROPRIATE VISITATION TIMES, PATIENT ANGRILY ENDED THE CALL BY HANGING UP PHONE.
--- NOTE | 2020-08-26 12:53 | NUR ---
NURSE SPOKE WITH JUAN DIRECTOR ON REHAB AT THIS TIME. SHE STATED PT WAS HERE AT THIS TIME. Arianne JAEGER RN SPOKE WITH HIM PREVIOUSLY AND HE HUNG UP ON NURSE BEFORE HE COULD FINISH VISITATION TIMES. PREVIOUS SHIFT STATED THEY ATTEMPTED TO REACH PT AFTER PT ADMITTED TO FLOOR. UNABLE TO REACH AT THAT TIME. NURSE GAVE JUAN VISITING HOURS AND DAYS. UNABLE TO REACH BODY CLEANER FOR ATTEMPTED VISIT AT THIS TIME. NURSE COULD NOT FIND AFTER PHONE CALL.
--- NOTE | 2020-08-26 14:50 | NUR ---
ALERT, CALM, PLEASANT MOOD, CONFUSED. NO ADVERSE BEHAVIORS NOTED. MEDS ADMIN PER ORDERS WITH COMPLETE MED COMPLIANCE NOTED. CONT POC OUTLINED.
[2020-08-26 16:37] VITALS: Ht 160 cm; Wt 71.0 kg
--- NOTE | 2020-08-26 23:24 | NUR ---
RECEIVED PATIENT IN HER ROOM, SHE IS CONFUSED, PLEASANT. SHE CAN MAKE HER NEEDS KNOWN. COMPLIANT WITH HER MEDS. HER PACEMAKER (LEFT) IS COVERED. SHE PROPELS HERSELF AROUND IN WHEELCHAIR. WILL FOLLOW POC
[2020-08-27 00:03] VITALS: BP 154/55
[2020-08-27 09:11] VITALS: BP 147/70
--- NOTE | 2020-08-27 18:08 | NUR ---
NURSE GAVE PASSCODE TO PTS DURING VISITATION. NURSE EDUCATED ON VISITATION RULES AND REGULATIONS.
--- NOTE | 2020-08-27 18:22 | NUR ---
Patient rec'd this am lying on bed. She is med compliant and takes her meds whole. She is calm, cooperative, and very social. She has attended some socialization with other patients today and was very interactive. She has some confustion with difficult topics but can follow simple directions.
[2020-08-27 20:00] VITALS: BP 138/72
--- NOTE | 2020-08-27 21:37 | NUR ---
RECEIVED PATIENT IN HER ROOM, SHE IS PLEASANT, SHE IS CONFUSED, SHE IS COOPERATIVE, COMPLIANT WITH MEDS, SHE CAN MAKE HER NEEDS KNOWN. ALARM ON AND AUDIBLE. WILL FOLLOW POC
[2020-08-28 09:53] VITALS: BP 120/60
--- NOTE | 2020-08-28 11:32 | HP ---
PATIENT: RHONDA NOGUEIRA MEDICAL RECORD: [id number] ACCOUNT: [id number] LOCATION:[facility] : 33 ADMISSION DATE: 08/25/20 PCP: No PCP HISTORY AND PHYSICAL EXAMINATION IDENTIFYING DATA: The patient is an 84-year-old female who is admitted voluntarily from the medical floor. HISTORY OF PRESENT ILLNESS: The patient has altered mental status change. The patient had a history of a pacemaker couple of weeks ago. She also has a history of bipolar disorder and she had presented to the Emergency Room and then was admitted to the medical floor where she was medically stabilized and continued to have a change in cognition and memory. PAST MEDICAL HISTORY: Includes pain, anemia, hypertension, atrial fib, and osteoarthritis. PAST PSYCHIATRIC HISTORY: History for bipolar with dorothy and also delirium. FAMILY HISTORY: Noncontributory. ALLERGIES: The patient has no known allergies. CURRENT MEDICATIONS: Include Cefdinir 300 mg, Eliquis 5 mg, Betapace 80 mg p.o., Lopressor 25 mg, amiodarone 200 mg, aspirin 81 mg, Mucinex, Protonix, Synthroid, and olanzapine 2.5 mg. SOCIAL HISTORY: The patient is . She appears to live with her spouse. She has never been a smoker, does not use alcohol and does not use any recreational drug use. MENTAL STATUS EXAM: The patient is awake, alert, and oriented to person; disoriented to place, time, and situation. Her mood is euthymic and elevated. Her affect is expansive. Her behavior is pleasant and cooperative. She is moderately disheveled. Her associations are loose. The patient does not appear to be hallucinating or have delusions. She does have tangential thoughts. Her mood is mildly anxious. No tremors were noted. She does appear to have impairment of her memory, concentration, and abstraction abilities. She is denying any suicidal ideation. She does not appear to be delusional. Strengths are her ability to make her needs known. Her weaknesses is psychosocial stressors. ASSESSMENT: AXIS I: Dementia. AXIS II: Deferred. AXIS III: Includes hypertension, atrial fib, and arthritis. AXIS IV: Moderate stressors. AXIS V: Global assessment of functioning is 35. PLAN: At this time, the patient is admitted to the hospital for comprehensive medical, psychological, and social evaluation. She will be treated with both mood stabilizing and memory enhancing medications. Long-term prognosis is guarded. HISTORY AND PHYSICAL [id number] RHONDA NOGUEIRA TRANSINT:[id number] Voice Confirmation ID: [id number] DOCUMENT ID: [id number] Dictated By: ARIN ANTONIO I have interviewed/examined the above patient and agree with these documented findings. JIM TEJEDA MD at 1200 at 1132 CC: [id number] DICTATION DATE: 08/25/201946 CHEMICAL ENGRAVER: 08/25/202226 ADM IN [facility] [address] [id number]
--- NOTE | 2020-08-28 11:43 | NUR ---
RECEIVED PATIENT LYING IN BED IN PATIENT'S ROOM. PATIENT IS AWAKE AND ALERT X2. PATIENT IS CALM AND COOPERATIVE WITH ASSESSMENT AT THIS TIME. PRESCRIBED MEDICATIONS PROVIDED ORDERED. MED COMPLIANT AT THIS TIME. PATIENT IS HYPERVERBAL AND VERY SOCIAL AT THIS TIME. REDIRECT AND REORIENT NEEDED. FALL PRECAUTIONS IN PLACE FOR SAFETY. WILL CONTINUE PLAN OF CARE.
--- NOTE | 2020-08-28 21:11 | NUR ---
RECEIVED PATIENT IN HALLWAY SOCIALIZING WITH PEERS, SHE IS VERY PLEASANT BUT ALSO VERY CONFUSED, COMPLIANT WITH MEDS. SHE CAN MAKE HER NEEDS KNOWN. WILL FOLLOW POC
[2020-08-28 21:28] VITALS: BP 158/88
[2020-08-29 11:59] VITALS: BP 118/58
--- NOTE | 2020-08-29 15:57 | NUR ---
RECEIVED PATIENT IN HALLWAY SITTING IN WHEELCHAIR BY NURSES STATION. AWAKE AND ALERT TO PERSON ONLY. CALM AND COOPERATIVE WITH ASSESSMENT AT THIS TIME. PATIENT IS VERY FRIENDLY WITH STAFF. PATIENT'S MOOD IS HAPPY AT THIS TIME. PRESCRIBED MEDICATIONS PROVIDED ORDERED. MED COMPLIANT. REDIRECT AND REORIENT NEEDED. FALL PRECAUTIONS IN PLACE FOR SAFETY. WILL CONTINUE PLAN OF CARE.
[2020-08-29 22:10] VITALS: BP 143/72
--- NOTE | 2020-08-29 23:22 | NUR ---
PT IS ALERT AND ORIENTED TO SELF ONLY. SHE RELATES THAT SHE IS IN THE HOSPITAL. CALM, COOPERATIVE AND SOCIAL WITH PEERS. COMPLIANT WITH ALL MEDICATIONS. VERY CONFUSED. ADMITS TO SEEING DOGS IN THE HALLWAY. EASY TO REDIRECT. MONITOR FOR SAFETY.
[2020-08-30 08:00] VITALS: BP 155/77
--- NOTE | 2020-08-30 12:05 | NUR ---
RECEIVED PATIENT IN HALLWAY SOCIALIZING WITH PEERS. CALM AND COOPERATIVE WITH ASSESSMENT AT THIS TIME. AWAKE AND ALERT TO PERSON ONLY. PRESCRIBED MEDICATIONS PROVIDED ORDERED. MED COMPLIANT. PATIENT'S MOOD IS PLEASANT AT THIS TIME. NO OTHER BEHAVIORS NOTED AT THIS TIME. FALL PRECAUTIONS IN PLACE FOR SAFETY. WILL CONTINUE PLAN OF CARE.
--- NOTE | 2020-08-30 15:24 | PN ---
PATIENT:RHONDA NOGUEIRA MEDICAL RECORD: [id number] LOCATION:[facility] ADMISSION DATE: 08/25/20 PROGRESS NOTE DATE OF SERVICE: 08/29/2020 SUBJECTIVE: The patient's case was discussed with staff. OBJECTIVE: The patient is oriented partially. She has very limited insight about her situation. She did eat and sleep well last night and is just pleasantly confused. ASSESSMENT: Dementia. PLAN: Current medicines have been reviewed and will be maintained. TRANSINT:[id number] Voice Confirmation ID: [id number] DOCUMENT ID: [id number] JIM TEJEDA MD at 1524 CC: [id number] DICTATION DATE: 08/29/20 1650 CASH ACCOUNTANT: 08/30/20 0103 ADM IN [id number] [place] [address]
[2020-08-30 20:16] VITALS: BP 171/71
--- NOTE | 2020-08-30 21:00 | NUR ---
PATIENT RECEIVED IN HER ROOM SITTING IN A WHEELCHAIR. SHE IS PLEASANT BUT CONFUSED. CALM AND COOPERATIVE WITH ASSESSMENT. SHE CAN MAKE HER NWEEDS KNOWN, BUT IS INCONTINENT AT TIMES DURING THE NIGHT. SHE IS MEDICATION COMPLIANT. MONITOR FOR SAFETY AND FOLLOW POC.
[2020-08-31 08:00] VITALS: BP 161/75
--- NOTE | 2020-08-31 11:15 | NUR ---
PT WAS UP OUT OF BED IN RESTROOM. PT STATED I TURNED OFF THAT NOISY BOX. NURSE EDUCATED ON IMPORTANCE OF NOT TURNING OFF BED ALARM DUE TO STAFF HAVE FALL RISK PRECAUTIONS IN PLACE. PT DID NOT VERBALIZIE UNDERSTANDING.
--- NOTE | 2020-08-31 15:18 | PN ---
PATIENT:RHONDA NOGUEIRA MEDICAL RECORD: [id number] LOCATION:[facility] ADMISSION DATE: 08/25/20 PROGRESS NOTE DATE OF SERVICE: 08/30/2020 SUBJECTIVE: The patient's case was discussed with staff. OBJECTIVE: The patient has depressed mood, but no thoughts of self-harm. She is only oriented to person. She denies any hallucinations, although some were reported yesterday. ASSESSMENT: 1. Dementia. 2. Major depression. PLAN: The patient is going to have her Depakote discontinued for lack of strong clinical indication. She will be monitored for clinical changes. TRANSINT:[id number] Voice Confirmation ID: [id number] DOCUMENT ID: [id number] JIM TEJEDA MD at 1518 CC: [id number] DICTATION DATE: 08/30/20 1553 PIPE MANUFACTURE SUPERVISOR: 08/30/20 2325 ADM IN [address] [id number] [place] [id number]
--- NOTE | 2020-08-31 15:40 | NUR ---
Nutrition Re-Assessment Diet: Cardiac PO intake: 75-100% x last 9 meals Last BM: 08/30/20 Wt: 163# (08/28/20); Admit Wt: 162# (08/25/20) Meds reviewed, no new chem labs Estimated nutrition needs remain unchanged from initial nutrition assessment at this time. Patient is currently meeting nutrition goals at this time. Recommendations/Interventions: -Continue current diet. Will continue to honor food preferences within diet restrictions. -RD will follow-up within 7 days.
--- NOTE | 2020-08-31 17:34 | NUR ---
pt sitting in chair socializing with peers. pt is calm and cooperative. pt is very friendly and talkative. confusion noted. redirect and reorient as needed. pt can toilet self but at times requires assistance at times. educated on bed alarms several times this shift. pt did voice understanding. pt compliant with meds, vitals and assessments. no aggression noted. bed and chair alarm in place and active. will cont plan of care
[2020-08-31 20:00] VITALS: BP 159/75
--- NOTE | 2020-08-31 21:54 | NUR ---
RECEIVED PATIENT IN HER ROOM SLEEPING, EASILY AROUSED FOR MEDS, COMPLIANT WITH MEDS, SHE IS VERY CONFUSED BUT VERY PLEASANT AND VERY GRATEFUL FOR WHAT IS DONE FOR HER. WILL FOLLOW POC
[2020-09-01 08:54] VITALS: BP 156/83
--- NOTE | 2020-09-01 13:37 | PN ---
PATIENT:RHONDA NOGUEIRA MEDICAL RECORD: [id number] LOCATION:[facility] ADMISSION DATE: 08/25/20 PROGRESS NOTE DATE OF SERVICE: 08/31/2020 SUBJECTIVE: The patient's case was discussed with staff. She has no new complaint. OBJECTIVE: The patient is in good behavioral control with limited insight about her situation. She has not been disruptive. ASSESSMENT: Dementia. PLAN: I anticipate the patient can be discharged soon. Her long-term prognosis is guarded. TRANSINT:[id number] Voice Confirmation ID: [id number] DOCUMENT ID: [id number] JIM TEJEDA MD at 1337 CC: [id number] DICTATION DATE: 08/31/20 1624 ROTATING EQUIPMENT SPECIALIST: 08/31/20 1901 ADM IN [address] [place] [address]
--- NOTE | 2020-09-01 15:48 | NUR ---
ALERT, CALM, CONFUSED, PLEASANT AND TALKATIVE. COOPERATIVE WITH STAFF REQUESTS. MEDS ADMIN PER ORDERS WITH COMPLETE MED COMPLIANCE NOTED. AT THIS TIME, PATIENT IS ENJOYING VISITING WITH HER NEIGHBOR, NO ADVERSE BEHAVIORS OBSERVED. CONTINUE POC OUTLINED.
--- NOTE | 2020-09-01 15:49 | NUR ---
pt visiting with visitor at this time. pt is talkative, calm and excited to see her friend. pt is cooperative with care. requires little assistance with ADL's. pt can tolerate ambulating for bed to toilet. pt is compliant with meds, vitals and assessments. PT consult in computer. pt is confused and alert to self only. redirect and reorient as needed. pt cont to have bruising to chest due to pacemaker placement. chair alarm in place and active. will cont plan of care.
[2020-09-01 20:00] VITALS: BP 193/73
--- NOTE | 2020-09-01 21:41 | NUR ---
RECEIVED PATIENT IN HER BED. SHE IS VERY CONFUSED, VERY PLEASANT, SHE CAN MAKE HER NEEDS KNOWN BUT DOESN'T ALWAYS LET THEM BE KNOWN, SHE IS COMPLIANT WITH HER MEDS. WILL FOLLOW POC
--- NOTE | 2020-09-02 00:22 | NUR ---
PATIENT TURNED OFF BED ALARM, SHE WAS INSTRUCTED NOT TO DO THIS AND EXPLAINED THE RATIONALE FOR IT (SAFETY), SHE VERBALIZED UNDERSTANDING. WILL CONTINUE TO MONITOR PATIENT
[2020-09-02 09:55] VITALS: BP 162/83
--- NOTE | 2020-09-02 15:29 | NUR ---
WALKED WITH A WALKER 150 FT MIN ASSIT
--- NOTE | 2020-09-02 17:49 | NUR ---
PT SITTING IN CHAIR AT THIS TIME. PT IS CALM AND COOPERATIVE. TALKATIVE WITH STAFF AND HAPPY. CONFUSED AND ALERT TO SELF ONLY. REDIRECT AND REORIENT NEEDED. COMPLIANT WITH MEDS, VITALS AND ASSESSMENTS. CAN MAKE NEEDS KNOWN. PT CAN SELF TOILET WITH SUPERVISION. PHYSICAL THERAPY WORKING WITH PT. CHAIR AND BED ALARM IN PLACE. NO BEHAVIORS NOTED. WILL CONT PLAN OF CARE.
[2020-09-02 20:00] VITALS: BP 166/66
--- NOTE | 2020-09-02 20:54 | NUR ---
PT IS ALERT AND ORIENTED TO SELF ONLY. POOR INSIGHT INTO HER SITUATION. RECEIVED IN HER ROOM IN BED RESTING CALMLY. COOPERATIVE AND ENTHUSIASTIC WITH STAFF. COMPLIANT WITH ALL MEDICATIONS. EASY TO REDIRECT. MONITOR FOR SAFETY.
[2020-09-03 08:07] VITALS: BP 187/87
--- NOTE | 2020-09-03 14:11 | NUR ---
ALERT, CALM, VERY PLEASANT AND QUITE JOVIAL AND TALKATIVE, CONFUSED. MEDS ADMIN PER ORDERS WITH COMPLETE MED COMPLIANCE NOTED. NO ADVERSE REACTION TO MEDS. CONTINUE CURRENT PLAN OF CARE, MONITORING FOR FURTHER CONFUSION.
--- NOTE | 2020-09-03 15:00 | NUR ---
LE: PATIENT SHOWERED PER MHT.
[2020-09-03 20:00] VITALS: BP 140/88
--- NOTE | 2020-09-03 20:54 | NUR ---
PT IS ALERT AND ORIENTED TO SELF ONLY. SHE IS RECEIVED IN THE HALLWAY OUTSIDE THE NURSES STATION IN A WHEELCHAIR SOCIALIZING WITH PEERS. SHE IS PLEASANT AND COOPERATIVE WITH STAFF. COMPLIANT WITH ALL MEDICATIONS. EASY TO REDIRECT. MONITOR FOR SAFETY.
--- NOTE | 2020-09-04 14:16 | NUR ---
GT BELT, PATIENT WALKED 150 FEET WITH WALKER WITH MIN ASST.
[2020-09-04 21:44] VITALS: BP 159/71
[2020-09-05 08:00] VITALS: BP 173/73
--- NOTE | 2020-09-05 09:59 | NUR ---
PATIENT WALKED 200 FEET WITH WALKER WITH MIN ASST.
--- NOTE | 2020-09-05 14:04 | PN ---
PATIENT:RHONDA NOGUEIRA MEDICAL RECORD: [id number] LOCATION:[facility] ADMISSION DATE: 08/25/20 PROGRESS NOTE DATE OF SERVICE: 09/01/2020 SUBJECTIVE: The patient's case was discussed with staff. She has no new complaint. OBJECTIVE: The patient is tolerating her medicines well and participating in treatment reasonably well. ASSESSMENT: Dementia. PLAN: The patient is going to have a physical therapy evaluation. Plan at this time is for her to go home with her , but it is not going to be possible unless she is adequately mobile since he is not able to really care for her otherwise. TRANSINT:[id number] Voice Confirmation ID: [id number] DOCUMENT ID: [id number] JIM TEJEDA MD at 1404 CC: [id number] DICTATION DATE: 09/01/20 180 ACCOUNT LEADER: 09/01/20 1819 ADM IN [facility] [address] [place] [address]
--- NOTE | 2020-09-05 16:00 | NUR ---
SW attempted to call pt's to discuss discharging tomorrow. ARELI could not leave a voicemail.
--- NOTE | 2020-09-05 17:30 | NUR ---
RECEIVED IN PATIENT ROOM. CALM AND COOPERATIVE WITH CARE AND ASSESSMENT. BELIEVES SHE IS HERE FOR A PAP SMEAR. PLEASANTLY CONFUSED. REDIRECT AND REORIENT NEEDED. EATING DINNER AT THIS TIME. CONTINUE PLAN OF CARE.
[2020-09-05] MEDS ORDERED: NAMENDA5 MG PO (17:47)
[2020-09-05] MEDS ORDERED: NORVASC2.5 MG PO (17:47)
[2020-09-05] MEDS ORDERED: ERGOCALCIF50000 UNIT PO (17:48)
[2020-09-05 22:16] VITALS: BP 120/69
--- NOTE | 2020-09-06 01:40 | NUR ---
B)RECEIVED PATIENT LYING IN HER BED. ORIENTED TO SELF AND RELATES SHE IS AT "[facility] NO IN SIGHT FOR REASON OF HOSPITALIZATION. CALM AND COOPERATIVE. I)ADMINISTER MEDS AND MONITOR COMPLIANCE. REORIENT NEEDED. R)MED COMPLIANT. POOR REORIENTATION DUE TO IMPAIRED ABILITY TO RETAIN AND INFORMATION. P)CONTINUE POC AND PROVIDE SAFE ENVIRONMENT.
--- NOTE | 2020-09-06 16:48 | PN ---
PATIENT:RHONDA NOGUEIRA MEDICAL RECORD: [id number] LOCATION:[facility] ADMISSION DATE: 08/25/20 PROGRESS NOTE DATE OF SERVICE: 09/05/2020 SUBJECTIVE: The patient's case was discussed with staff. She has no new complaint. OBJECTIVE: The patient is disorganized, but pleasant. She is only oriented to person. ASSESSMENT: 1. Dementia. 2. Major depression. PLAN: The patient has reached maximum hospital benefit and will be transitioned home tomorrow. Her long-term prognosis is guarded. TRANSINT:[id number] Voice Confirmation ID: [id number] DOCUMENT ID: [id number] JIM TEJEDA MD at 1648 CC: [id number] DICTATION DATE: 09/05/20 1745 INVESTOR RELATIONS MANAGER: 09/06/20 0055 ADM IN [facility] [address] [place] [address]
--- NOTE | 2020-09-06 17:46 | NUR ---
REC'D PT IN HALLWAY SITTING IN W/C. AWAKE AND ALERT X 2. CALM AND COOPERATIVE WITH ASSESSMENT. PRESCRIBED MEDS PROVIDED ORDERED. MED COMPLIANT. NO BEHAVIORS NOTED. WILL CPOC.
[2020-09-06 20:00] VITALS: BP 161/76
--- NOTE | 2020-09-06 20:18 | NUR ---
RECEIVED IN BEDROOM. RESTING IN BED WITH EYES OPEN. CALM AND COOPERATIVE WITH CARE AND ASSESSMENT. SOCIAL WITH STAFF. REDIRECT AND REORIENT NEEDED. CONTINUES TO REST QUIETLY IN BED. CONTINUE PLAN OF CARE.
[2020-09-07 08:16] VITALS: BP 159/75
--- NOTE | 2020-09-07 10:33 | NUR ---
Received patient sit in wheelchair by nurses station. Patient's mood is pleasant at this time. Calm and cooperative with assessment at this time. Prescribed medications provided as ordered. Med compliant. Patient is pleasantly confused. No behaviors noted at this time. Redirect and reorient as needed. Fall precautions in place for safety. Will continue plan of care.
--- NOTE | 2020-09-07 11:07 | NUR ---
Nutrition Re-Assessment Diet: Cardiac PO intake: 100% x last 8 meals Last BM: 09/06/20 Wt: 156# (09/04/20); Admit Wt: 162# (08/25/20)- noted -6# wt change. Suspect fluid vs inaccuracy of scales as patient has been with adequate PO intake to meet estimated energy needs. Meds and labs reviewed. Estimated nutrition needs remain unchanged from initial nutrition assessment at this time. Patient is progressing towards meeting nutrition goals at this time. Recommendations/Interventions: -Continue current diet. Will continue to honor food preferences. -RD will continue to monitor PO intake and wt trend. -RD will follow-up within 7 days.
--- NOTE | 2020-09-07 14:20 | NUR ---
PATIENT DISCHARGED TO HOME WITH [facility]. DISCHARGE PAPERWORK FAXED TO PCP [facility]. HARD COPY SENT WITH PATIENT. DISCHARGE PAPERWORK AND DISCHARGE MEDICATIONS REVIEWED WITH PATIENT AND . THEY VERBALIZE UNDERSTANDING. PERSONAL BELONGINGS SENT WITH PATIENT. DISCHARGE MEDICATIONS ELECTRONICALLY SENT TO PHARMACY.
--- NOTE | 2020-09-07 16:20 | PN ---
PATIENT:RHONDA NOGUEIRA MEDICAL RECORD: [id number] LOCATION:[facility] ADMISSION DATE: 08/25/20 PROGRESS NOTE DATE OF SERVICE: 09/06/2020 SUBJECTIVE: The patient's case was discussed with staff. She has no new complaint. OBJECTIVE: The patient is in good behavioral control, pleasant and cooperative. ASSESSMENT: Dementia. PLAN: The patient will be discharged as soon as her can make the appropriate arrangements. Hopefully, that will be tomorrow. TRANSINT:[id number] Voice Confirmation ID: [id number] DOCUMENT ID: [id number] JIM TEJEDA MD at 1620 CC: [id number] DICTATION DATE: 09/06/20 170 LABOR/EXCAVATOR: 09/07/20 0020 ADM IN [id number] [place] [address]
--- NOTE | 2020-09-08 16:13 | DS ---
PATIENT:RHONDA NOGUEIRA :31 MEDICAL RECORD: [id number] DISCHARGE SUMMARY ADMISSION DATE: 08/25/20 DISCHARGE DATE: 09/07/20 IDENTIFYING DATA: The patient is 84 years old and she was admitted to the hospital on voluntary basis. CHIEF COMPLAINT: Confusion. HISTORY OF PRESENT ILLNESS: The patient had been hospitalized on the medical floor secondary to confusion. She had fallen at home and evaluation of her pacemaker and other possible causes for the fall was evaluated, but she was having some significant agitation and was subsequently referred to us for evaluation and treatment. She was supposedly experiencing an acute mental status change. HOSPITAL COURSE: The patient was admitted to the hospital and fully evaluated from both a medical, psychological, and social standpoint. She was treated with both mood stabilizing and memory enhancing medications and showed improvement in her behavior, but no real change in her underlying level of impairment. She was subsequently discharged home with her . DISCHARGE DIAGNOSES: AXIS I: Major neurocognitive disorder. AXIS II: None. AXIS III: Hypertension, atrial fibrillation, arthritis. AXIS IV: Moderate stressors. AXIS V: Global assessment of functioning is 40. PLAN: At the time of discharge, the patient was in good behavioral control and had no evidence of acute or direct dangerousness to herself or others. Followup is to be with her primary care physician. TRANSINT:[id number] Voice Confirmation ID: [id number] DOCUMENT ID: [id number] JIM TEJEDA MD at 1613 CC: [id number] DICTATION DATE: 09/07/20 1642 LAND MANAGEMENT FORESTER: 09/08/20 0609 DIS IN 09/07/[address] [place] [address]
== END 2020-09-07 14:00 | disposition home health service (06) | DRG 884 ==
LOC: D.PSYCH 15:19
PROVIDERS: ADMIT Psychiatry & Neurology Psychiatry; ATTEND Psychiatry & Neurology Psychiatry
DX: F03.90 Unspecified dementia, unspecified severity, without behavioral disturbance, psychotic disturbance, mood disturbance, and anxiety (principal); I10 Essential (primary) hypertension; I48.0 Paroxysmal atrial fibrillation; D64.9 Anemia, unspecified; E55.9 Vitamin D deficiency, unspecified; E78.5 Hyperlipidemia, unspecified; K21.9 Gastro-esophageal reflux disease without esophagitis; E02 Subclinical iodine-deficiency hypothyroidism; Z95.0 Presence of cardiac pacemaker